=== PATIENT | male | born 2000 | race Caucasian/White ===

== ENCOUNTER 2023-12-13 01:56 | Emergency (ER) | payer SELFPAY ==
[~2023-12-13] VITALS: Ht 172.7 cm; Wt 81.0 kg
[2023-12-13 01:59] VITALS: O2SAT 99
[2023-12-13] MEDS: DIPHENHYDRAMINE 50MG/ML VIAL IM STA (02:15)
[2023-12-13] MEDS: SODIUM CHLORIDE 0.9% 1,000 ML IV ONE (02:15)
[2023-12-13] MEDS: HALOPERIDOL LACTATE 5MG/ML VIAL IM STA (02:15)
[2023-12-13] MEDS: LORAZEPAM 2MG/ML INJ IV STA (02:20)
[2023-12-13 02:37] LABS: HEMATOCRIT. 45.8 % (42.0-52.0); HEMOGLOBIN. 15.6 g/dL (14.0-18.0); MEAN CORPUSCULAR HEMOGLOBIN 30.9 pg (28.0-32.0); MEAN CORPUSCULAR HGB CONC 34.1 g/dL (31.0-37.0); MEAN CORPUSCULAR VOLUME 90.8 fL (80.0-94.0); RED BLOOD CELL COUNT 5.05 mill/uL (4.7-6.1); RED CELL DISTRIBUTION WIDTH 12.8 % (11.6-14.6); WHITE BLOOD COUNT 13.6 x1000/uL (4.5-11.0)
[2023-12-13 02:46] LABS: CHLORIDE 102 mEq/L (98-107); POTASSIUM 3.4 mEq/L (3.5-5.1); SODIUM 138 mEq/L (136-145)
[2023-12-13 02:47] LABS: CARBON DIOXIDE 29 mEq/L (21-32)
[2023-12-13 02:48] LABS: CALCIUM 8.9 mg/dL (8.7-10.4)
[2023-12-13 02:52] LABS: CREATININE 0.9 mg/dL (0.6-1.3)
[2023-12-13 02:53] LABS: GLUCOSE 170 mg/dL (70-105); UREA NITROGEN BLOOD 9 mg/dL (9-23)
[2023-12-13 02:54] LABS: ACETAMINOPHEN < 2 ug/mL (10-30); CREATINE KINASE 431 IU/L (46-171); DIFFERENTIAL COMMENT 1
[2023-12-13 02:55] LABS: LACTIC ACID 2.4 mmol/L (0.4-2.0)
[2023-12-13 03:02] LABS: ETHANOL BLOOD 319 mg/dL (<10)
[2023-12-13] MEDS: MORPHINE SULFATE 4 MG/ML INJ (FOR IV/IM USE) IM ONE (03:11)
[2023-12-13 03:13] LABS: NEUTROPHILS % 47.8 % (40.0-76.0)
[2023-12-13 03:14] LABS: BASOPHILS % 0.9 % (0.0-2.0); EOSINOPHILS % 10.7 % (0.0-5.0); LYMPHOCYTES % 35.7 % (20.0-50.0); MONOCYTES % 4.9 % (2.0-8.0)
[2023-12-13 03:43] LABS: PLATELET 341 x1000/uL (130-400); PLATELET ESTIMATE NORMAL
[2023-12-13 16:31] LABS: CLARITY URINE CLEAR (CLEAR); COLOR URINE YELLOW (YELLOW); GLUCOSE URINE NEGATIVE (NEGATIVE); KETONES URINE NEGATIVE (NEGATIVE); LEUKOCYTE ESTERASE URINE NEGATIVE (NEGATIVE); NITRITE URINE NEGATIVE (NEGATIVE); OCCULT BLOOD URINE NEGATIVE (NEGATIVE); PROTEIN URINE NEGATIVE (NEGATIVE); SPECIFIC GRAVITY URINE 1.012 (1.005-1.030); UROBILINOGEN URINE 0.2 E.U./dL (0.2-1.0)
[2023-12-13 16:56] LABS: *AMPHETAMINES SCREEN URINE NEGATIVE (NEGATIVE); *BARBITURATES SCREEN URINE NEGATIVE (NEGATIVE); *BENZODIAZEPINES SCREEN URINE NEGATIVE (NEGATIVE); *COCAINE SCREEN URINE NEGATIVE (NEGATIVE)
[2023-12-13 16:57] LABS: CANNABINOID URINE SCREEN NEGATIVE (NEGATIVE); ECSTASY MDMA SCREEN URINE NEGATIVE (NEGATIVE); METHADONE URINE SCREEN NEGATIVE (NEGATIVE); OPIATES URINE SCREEN PRESUMPTIVE POSITIVE (NEGATIVE); PHENCYCLIDINE URINE SCREEN NEGATIVE (NEGATIVE)
[2023-12-18] MEDS: SERTRALINE HCL 25MG TABLET PO SCH (10:00)
[2023-12-18 10:01] VITALS: BP 125/51; PULSE 74; RESP 18; TEMP 36.78072; O2SAT 99
== END 2023-12-18 10:10 | disposition home or self-care (01) ==
LOC: EDBD 01:56 → ER 01:56
DX: S51.812A Laceration without foreign body of left forearm, initial encounter (principal); F10.129 Alcohol abuse with intoxication, unspecified; I49.9 Cardiac arrhythmia, unspecified; Z20.822 Contact with and (suspected) exposure to COVID-19; X83.8XXA Intentional self-harm by other specified means, initial encounter; Y93.89 Activity, other specified; Y92.89 Other specified places as the place of occurrence of the external cause; Y99.8 Other external cause status; Y90.8 Blood alcohol level of 240 mg/100 ml or more
CPT/HCPCS: 80305; 80048; 81003; 80307; 80329; 80320; 82550; 83605; 85025; 36415; 93005; 12001; 96361; 96372; 96374; 99285; 87426; J1200; J1630; J2060; J2270; J7030; Z7610 ×6; G0480